=== PATIENT | male | born 1950 | race Caucasian/White ===

== ENCOUNTER 2019-09-05 08:34 | Outpatient (CLI) | payer MEDICARE, OTHER, SELFPAY ==
[2019-09-05 09:20] LABS: INR 1.79 (0.8-1.2)
== END 2019-09-05 08:35 | disposition home or self-care (01) ==
LOC: LAB 08:42
PROVIDERS: Family Provider General Practice; Visit Provider Nurse Practitioner
DX: I63.9 Cerebral infarction, unspecified (principal)
CPT/HCPCS: 85610

== ENCOUNTER 2019-09-15 10:08 | Outpatient (CLI) | payer MEDICARE, OTHER, SELFPAY ==
[2019-09-15 11:34] LABS: INR 1.51 (0.8-1.2)
== END 2019-09-15 10:09 | disposition home or self-care (01) ==
PROVIDERS: Family Provider General Practice; Visit Provider Nurse Practitioner
DX: I63.9 Cerebral infarction, unspecified (principal)
CPT/HCPCS: 36415; 85610

== ENCOUNTER 2019-11-10 07:24 | Outpatient (CLI) | payer MEDICARE, OTHER, SELFPAY ==
[2019-11-10 08:07] LABS: INR 1.92 (0.8-1.2)
== END 2019-11-10 07:25 | disposition home or self-care (01) ==
LOC: LAB 07:35
PROVIDERS: Family Provider General Practice; Visit Provider Nurse Practitioner
DX: I63.9 Cerebral infarction, unspecified (principal)
CPT/HCPCS: 36415; 85610

== ENCOUNTER 2021-08-10 07:43 | Outpatient (CLI) | payer MEDICARE, OTHER, SELFPAY ==
[2021-08-10 08:25] LABS: INR 2.55 (0.8-1.2)
== END 2021-08-10 07:44 | disposition home or self-care (01) ==
LOC: LAB 07:45
PROVIDERS: PCP Nurse Practitioner; Visit Provider Nurse Practitioner
DX: I63.9 Cerebral infarction, unspecified (principal); Z79.01 Long term (current) use of anticoagulants
CPT/HCPCS: 85610

== ENCOUNTER 2021-09-07 06:46 | Outpatient (CLI) | payer MEDICARE, OTHER, SELFPAY ==
[2021-09-07 07:18] LABS: INR 1.86 (0.8-1.2)
== END 2021-09-07 06:47 | disposition home or self-care (01) ==
LOC: LAB 06:51
PROVIDERS: PCP Nurse Practitioner; Visit Provider Nurse Practitioner
DX: I63.9 Cerebral infarction, unspecified (principal); Z79.01 Long term (current) use of anticoagulants
CPT/HCPCS: 36415; 85610

== ENCOUNTER 2021-09-28 07:01 | Outpatient (CLI) | payer MEDICARE, OTHER, SELFPAY | END 2021-09-28 07:02 | disposition home or self-care (01) | LOC: LAB 07:04 | PROVIDERS: PCP Nurse Practitioner; Visit Provider Nurse Practitioner | DX: Z79.01 Long term (current) use of anticoagulants (principal); I63.9 Cerebral infarction, unspecified | CPT/HCPCS: 85610 ==

== ENCOUNTER 2021-10-07 07:07 | Outpatient (CLI) | payer MEDICARE, OTHER, SELFPAY ==
[2021-10-07 08:10] LABS: INR 2.03 (0.8-1.2)
== END 2021-10-07 07:08 | disposition home or self-care (01) ==
LOC: LAB 07:20
PROVIDERS: PCP Nurse Practitioner; Visit Provider Nurse Practitioner
DX: I63.9 Cerebral infarction, unspecified (principal); Z79.01 Long term (current) use of anticoagulants
CPT/HCPCS: 85610

== ENCOUNTER 2021-10-14 07:04 | Outpatient (CLI) | payer MEDICARE, OTHER, SELFPAY ==
[2021-10-14 07:56] LABS: INR 2.48 (0.8-1.2)
[2021-11-04 08:01] LABS: INR 1.93 (0.8-1.2)
== END 2021-10-14 07:05 | disposition home or self-care (01) ==
LOC: LAB 07:19
PROVIDERS: PCP Nurse Practitioner; Visit Provider Nurse Practitioner
DX: I63.9 Cerebral infarction, unspecified (principal); Z79.01 Long term (current) use of anticoagulants
CPT/HCPCS: 36415; 85610

== ENCOUNTER 2021-11-04 06:00 | Outpatient (CLI) | payer MEDICARE, OTHER, SELFPAY | END 2021-11-04 06:01 | disposition home or self-care (01) | LOC: LAB 11-20 08:02 | PROVIDERS: PCP Nurse Practitioner; Visit Provider Nurse Practitioner | DX: I63.9 Cerebral infarction, unspecified (principal); Z79.01 Long term (current) use of anticoagulants | CPT/HCPCS: 36415; 85610 ==

== ENCOUNTER 2022-08-04 13:52 | Outpatient (CLI) | payer MEDICARE, OTHER, SELFPAY ==
[2022-08-04 14:29] LABS: INR 1.75 (0.8-1.2)
== END 2022-08-04 13:53 | disposition home or self-care (01) ==
LOC: LAB 13:56
PROVIDERS: PCP Nurse Practitioner; Visit Provider Nurse Practitioner
DX: I63.9 Cerebral infarction, unspecified (principal); Z79.01 Long term (current) use of anticoagulants
CPT/HCPCS: 36415; 85610

== ENCOUNTER 2022-08-18 07:28 | Outpatient (CLI) | payer MEDICARE, OTHER, SELFPAY ==
[2022-08-18 08:16] LABS: INR 1.46 (0.8-1.2)
== END 2022-08-18 07:29 | disposition home or self-care (01) ==
PROVIDERS: PCP Nurse Practitioner; Visit Provider Nurse Practitioner
DX: I63.9 Cerebral infarction, unspecified (principal)
CPT/HCPCS: 85610

== ENCOUNTER 2022-08-25 08:41 | Outpatient (CLI) | payer MEDICARE, OTHER, SELFPAY ==
[2022-08-25 09:19] LABS: Prothrombin Time > 120.00 SECONDS (12.1-14.9)
[2022-08-25 10:14] LABS: INR > 20.00 (0.8-1.2)
== END 2022-08-25 08:42 | disposition home or self-care (01) ==
PROVIDERS: PCP Nurse Practitioner; Visit Provider Nurse Practitioner
DX: I63.9 Cerebral infarction, unspecified (principal); Z79.01 Long term (current) use of anticoagulants
CPT/HCPCS: 36415; 85610

== ENCOUNTER 2022-08-29 09:16 | Outpatient (CLI) | payer MEDICARE, OTHER, SELFPAY ==
[2022-08-29 10:13] LABS: INR 1.01 (0.8-1.2)
== END 2022-08-29 09:17 | disposition home or self-care (01) ==
LOC: LAB 09:31
PROVIDERS: PCP Nurse Practitioner; Visit Provider Nurse Practitioner
DX: Z79.01 Long term (current) use of anticoagulants (principal); I63.9 Cerebral infarction, unspecified
CPT/HCPCS: 36415; 85610

== ENCOUNTER 2022-09-04 09:15 | Outpatient (CLI) | payer MEDICARE, OTHER, SELFPAY ==
[2022-09-04 11:01] LABS: INR 1.55 (0.8-1.2)
== END 2022-09-04 09:16 | disposition home or self-care (01) ==
LOC: LAB 09:20
PROVIDERS: PCP Nurse Practitioner; Visit Provider Nurse Practitioner
DX: I63.9 Cerebral infarction, unspecified (principal)
CPT/HCPCS: 36415; 85610

== ENCOUNTER 2022-09-11 08:31 | Outpatient (CLI) | payer MEDICARE, OTHER, SELFPAY ==
[2022-09-11 09:52] LABS: INR 1.71 (0.8-1.2)
== END 2022-09-11 08:32 | disposition home or self-care (01) ==
LOC: LAB 08:37
PROVIDERS: PCP Nurse Practitioner; Visit Provider Nurse Practitioner
DX: Z79.01 Long term (current) use of anticoagulants (principal); I63.9 Cerebral infarction, unspecified
CPT/HCPCS: 85610

== ENCOUNTER 2022-09-25 07:22 | Outpatient (CLI) | payer MEDICARE, OTHER, SELFPAY ==
[2022-09-25 08:14] LABS: INR 2.12 (0.8-1.2)
== END 2022-09-25 07:23 | disposition home or self-care (01) ==
LOC: LAB 07:25
PROVIDERS: PCP Nurse Practitioner; Visit Provider Nurse Practitioner
DX: I63.9 Cerebral infarction, unspecified (principal); Z79.01 Long term (current) use of anticoagulants
CPT/HCPCS: 36415; 85610

== ENCOUNTER 2022-10-16 07:35 | Outpatient (CLI) | payer MEDICARE, OTHER, SELFPAY | END 2022-10-16 07:36 | disposition home or self-care (01) | PROVIDERS: PCP Nurse Practitioner; Visit Provider Nurse Practitioner | DX: I63.9 Cerebral infarction, unspecified (principal); Z79.01 Long term (current) use of anticoagulants | CPT/HCPCS: 36415; 85610 ==

== ENCOUNTER 2022-10-30 08:33 | Outpatient (CLI) | payer MEDICARE, OTHER, SELFPAY ==
[2022-10-30 10:00] LABS: INR 1.94 (0.8-1.2)
== END 2022-10-30 08:34 | disposition home or self-care (01) ==
LOC: LAB 08:38
PROVIDERS: PCP Nurse Practitioner; Visit Provider Nurse Practitioner
DX: Z79.01 Long term (current) use of anticoagulants (principal)
CPT/HCPCS: 36415; 85610